=== PATIENT | male | born 1965 | race Native Hawaiian/Other Pacific Islander ===

== ENCOUNTER 2018-07-04 06:37 | Emergency (ER) | payer BC ==
[~2018-07-04] VITALS: Ht 185.4 cm; Wt 97.5 kg
[2018-07-04 07:07] LABS: POTASSIUM 4.1 mmol/L (3.6-5.2); SODIUM 142 mmol/L (136-145)
[2018-07-04 07:57] VITALS: BP 110/76; TEMP 97
== END 2018-07-04 07:57 | disposition home or self-care (01) ==
LOC: ED 06:37
PROVIDERS: Internal Medicine
DX: R07.89 Other chest pain (principal); I10 Essential (primary) hypertension; I25.10 Atherosclerotic heart disease of native coronary artery without angina pectoris; N17.8 Other acute kidney failure
CPT/HCPCS: 80053; 82550; 84484; 93005; 96374; 99284; J2270; J3490